=== PATIENT | female | born 1945 | race Caucasian/White ===

== ENCOUNTER 2024-10-23 13:38 | Outpatient (CLI) | payer MEDICARE, SELFPAY ==
--- OUTSIDE RECORDS SUMMARY | 2023-04-15 20:00 | XMS_ITS | Continuity of Care Document ---
Author Organization [facility] Address [address] [place] [address] Phone Care Team Providers Care Backend Tester Name Role Phone Marcel Morrell MD, Serge Unavailable Unavaila ble Procedures Procedure Date SUBSEQUENT HOSPITAL CARE SUBSEQUENT HOSPITAL CARE Advance Directives Directive Yes / No Effective Date File Name No Information Encounters Encounter Description Practice Location Reason(s) For Visit Diagnoses Date Provider Providers Copied on Encounter SUBSEQUENT HOSPITAL CARE [facility], [address] [place], [place], [id number], [place] tel:[phone] [facility] No Information Marcel Valentine. [address] [place], [place], [id number], [place]. tel:[phone] Referring Provider: Serge Morrell, [address] [place] [address], [address]. tel:[phone] Family History Family Member Type Diagnosis Age At Onset No Information Payers Payer name Insurance type Covered republican ID Authoriza tion(s) [employer] [facility] [id number] Social History Type Description Quantity Date Captured Comments Sex Female Smoking Status No Information Chief Complaint And Reason For Visit No Information Reason For Referral Reason For Referral No Information History Of Present Illness Encounter Date Complaint History Of Prese nt Illness No Information Functional Status Date Functional Assessmen t No Information Instructions Date Instruction Additional Infor mation No Information Assessments Type Assessment Date No Information Patient Care Teams Name Effective Dates (start - stop) Status Members No Information
--- OUTSIDE RECORDS SUMMARY | 2024-10-12 13:40 | XMS_ITS | Encounter Summary ---
Author Organization Healthcare Address [address] [place] [address] Care Team Providers Care Whitesmith Name Role Phone Viola Sprague APRN Primary Care Provider +1- [phone] Reason for Visit * Reason Comments Hypertension High BP, has been ru nning between 150's systolic and 70 diastolic Encounter Details Date Type Department Care Team (Late st Contact Info) Description 10/12/2024 1:40 PM EDT Office Visit [facility] [address], [address] [place] [address] Eduarda Egan APRN [address] [place] [address] Essential (primary) hypertension (Primary Dx) Social History Tobacco Use Types Packs/Day Years Used Date Smoking Tobacco: Former Cigarettes 1 40 0 05/03/1964 - 05/03/2004 Passive Smoke Exposure: Past Smokeless Tobacco: Never Alcohol Use Standard Drinks/Week Comments No 0 (1 standard drink = 0.6 oz pure alcohol) Alcoholic Drinks/day: Never Drank Alcohol PHQ-2 Answer Date Recorded Patient Health Questionnaire-2 Score 0 01/18/2024 Humiliation, Afraid, Rape, and Kick questionnair e Answer Date Recorded Within the last year, have y ou been afraid of your partner or ex-partner? No 10/12/2024 Within the last year, have y ou been humiliated or emotionally abused in other ways by your partner or ex-partner? No Within the last year, have y ou been kicked, hit, slapped, or otherwise physically hurt by your partner or ex-partner? No 10/12/2024 Within the last year, have y ou been raped or forced to have any kind of sexual activity by your partner or ex-partner? No 10/12/2024 Hunger Vital Sign Answer Date Recorded Within the past 12 months, y ou worried that your food would run out before you got the money to buy more. Never true 10/13/19 25 Within the past 12 months, t he food you bought just didn't last and you didn't have money to get more. Never true 10/12/2024 PRAPARE - Transportation Answer Date Re corded In the past 12 months, has l ack of transportation kept you from medical appointments or from getting medications? No 10/01 In the past 12 months, has l ack of transportation kept you from meetings, work, or from getting things needed for daily living? No 10/12/2024 Housing Stability Vital Sign Answer Sony e Recorded In the last 12 months, was t here a time when you were not able to pay the mortgage or rent on time? No 10/12/2024 In the past 12 months, how m any times have you moved where you were living? 0 10/12/2024 At any time in the past 12 m [facility], were you homeless or living in a mcc (including now)? No 10/12/2024 Safety and Environment Answer Date Dillan rded Do you worry that your child may have been physically abused? No 10/12/2024 Do you worry that your child may have been sexua lly abused? No 10/12/2024 Are there any guns kept in o r around your home or where your child spends time? No 10/12/2024 Guns Unloaded or Locked Away Not on file 04/2025 Utilities Answer Date Recorded In the past 12 months has th e electric, gas, oil, or water company threatened to shut off services in your home? No 10/12/2024 PHQ-2A Answer Date Recorded Patient Health Questionnaire-2 Score 0 12/29/2022 Comments No Sex and Gender Information Value Date Recorded Sex Assigned at Not on file Legal Sex Female 6:01 PM EDT Gender Identity Not on file Sexual Orientation Not on file documented as of this encounter Last Filed Vital Signs Vital Sign Reading Time Taken Comments Blood Pressure 147/73 10/12/2024 2:02 PM EDT Pulse 71 10/12/2024 2:02 PM EDT Temperature 36.3 C (97.4 F) 10/12/2024 1:41 PM EDT Respiratory Rate 15 10/12/2024 1:41 PM EDT Oxygen Saturation - - Inhaled Oxygen Concentration - - Weight 86.7 kg (191 lb 2.2 oz) 10/12/2024 1:41 P M EDT Height 167.6 cm (5' 6 ) 10/12/2024 1:41 PM EDT Body Mass Index 30.85 10/12/2024 1:41 PM EDT documented in this encounter Miscellaneous Notes * Assessment & Plan Note - Eduarda Egan APRN - 10/12/2024 1:40 PM EDT Associated Problem(s): Essential (primary) hypertension - Reports elevated home readings, controlled at first in office but then elevated to 147/79. - Already on lisinopril 40 + carvedilol 6.25 mg BID. - Will add amlodipine 2.5 mg daily. - Will have pt send me her BP readings in 2 weeks. - RTC in January/ and sooner if needed. Appt with Dr. Rivers on 01/03/25. - Check BMP today. Orders: amLODIPine (Norvasc) 2.5 MG tablet; Take 1 tablet by mouth daily. Basic metabolic panel; Future * Progress Notes - Eduarda Egan APRN - 10/12/2024 1:40 PM EDT [facility] Subjective Hypertension Ms. May is here today for a call in visit for HTN. BP currently 134/72, but that surprises her b/c @ home it is 150-160s systolic/80-90. She denies CP/SOA/dizziness/burry vision. Her Bp has been high off and on since 2022 looking back at her logs. She recently saw Ortho about her hip and is hesitant to schedule surgery w/ BP being high. Sometimes now 169/91. In the past more 140-150 systolic and wasn't worried about it. Her PA in [place] told if not > 150/90, not concerned. August 2024 showingreadings mostly 140s/70-80. She does c/o hip pain ongoing x 6 mos. Did see Ortho and they did an X-Ray and told her that she will need a replacement. She is using tylenol and IBU for pain. Her mother also had HTN and suffered a serious stroke. Medications Ordered Prior to Encounter[1] Allergies[2] Review of Systems See HPI Objective Vitals: 10/12/24 1402 BP: (!) 147/73 Pulse: 71 Resp: Temp: Physical Exam Vitals and nursing note reviewed. Constitutional: Appearance: Normal appearance. She is not ill-appearing or toxic-appearing. HENT: Head: Normocephalic. Cardiovascular: Rate and Rhythm: Normal rate and regular rhythm. Pulses: Normal pulses. Heart sounds: Normal heart sounds. Pulmonary: Effort: Pulmonary effort is normal. Breath sounds: Normal breath sounds. Musculoskeletal: Cervical back: Neck supple. Skin: General: Skin is warm and dry. Neurological: Mental Status: She is alert and oriented to person, place, and time. Psychiatric: Attention and Perception: Attention normal. Mood and Affect: Mood normal. Speech: Speech normal. Behavior: Behavior normal. Thought Content: Thought content normal. Cognition and Memory: Cognition and memory normal. Judgment: Judgment normal. Assessment & Plan Essential (primary) hypertension - Reports elevated home readings, controlled at first in office but then elevated to 147/79. - Already on lisinopril 40 + carvedilol 6.25 mg BID. - Will add amlodipine 2.5 mg daily. - Will have pt send me her BP readings in 2 weeks. - RTC in January w/ Viola and sooner if needed. Appt with Dr. Rivers on 01/03/25. - Check BMP today. Orders: amLODIPine (Norvasc) 2.5 MG tablet; Take 1 tablet by mouth daily. Basic metabolic panel; Future Eduarda Egan APRN [1] Current Outpatient Medications on File Prior to Visit Medication Sig Dispense Refill acetaminophen (Tylenol 8 Hour) 650 MG ER tablet 1 tablet (650 mg) every 8 (eight) hours if needed. Aspirin Buf,IzOqru-UoLkdp-BlZ, 81 MG tablet TAKE 1 TABLET DAILY. atorvastatin (Lipitor) 40 MG tablet Take 1 tablet (40 mg) by mouth 1 (one) time each day. 90 tablet3 calcium carbonate 1500 (600 Ca) MG tablet Take 600 mg by mouth 1 (one) time each day. Ckhyxcj-Efoebjjij-Dkwfndw D (CALCIUM 1200+D3 PO) Take by mouth 1 (one) time each day. carvedilol (Coreg) 3.125 MG tablet Take 2 tablets (6.25 mg) by mouth 2 (two) times a day with meals. 180 tablet 3 cholecalciferol (Vitamin D-3) 25 MCG (1000 UT) tablet Take 1 tablet (1,000 Units) by mouth 1 (one) time each day. coenzyme Q-10 100 MG capsule Take 1 capsule (100 mg) by mouth 1 (one) time each day. lisinopril 40 MG tablet Take 1 tablet (40 mg) by mouth 1 (one) time each day. 90 tablet 3 TURMERIC PO Take 1 capsule by mouth 1 (one) time each day. No current facility-administered medications on file prior to visit. [2] No Known Allergies documented in this encounter Plan of Treatment Upcoming Encounters Date Type Department Care Team (Late st Contact Info) Description 01/03/2025 1:00 PM EDT Office Visit [facility] [place] [address] [place] [address] Juan Manuel Rivers MD [address] [place] [address] 01/22/2025 10:00 AM EDT Clinical Support [facility] [address] [place] [address] 02/05/2025 10:30 AM EDT Office Visit [facility] [address] [place] [address] Mariana Spraguearanza [place], ASPHALT ROLLER OPERATOR [address] [place] [address] documented as of this encounter Results * (ABNORMAL) Basic metabolic panel (10/12/2024 2:31 PM EDT) Pathologist [facility] [place] Glucose, Plasma 120(H) 74 - 99 mg/dL 10/12/2024 3:57 PM EDT [facility] BUN, Plasma 15 8 - 23 mg/dL 10/12/2024 3:57 PM EDT [facility] Creatinine, Plasma 0.92 0.60 - 1.10 mg/dL 10/12/2024 3:57 PM EDT [facility] BUN/Creatinine Ratio 16 10/12/2024 3:57 PM EDT [facility] Sodium, Plasma 140 136 - 145 mmol/L 10/12/2024 3:57 PM EDT [facility] Potassium, Plasma 4.0 3.6 - 4.9 mmol/L 10/12/2024 3:57 PM EDT [facility] Chloride, Plasma 102 97 - 107 mmol/L 10/12/2024 3:57 PM EDT [facility] CO2, Plasma 28 22 - 29 mmol/L 10/12/2024 3:57 PM EDT [facility] Anion Gap 10 6 - 16 mmol/L 10/12/2024 3:57 PM EDT [facility] Total Calcium, Plasma 9.5 8.9 - 10.2 mg/dL 10/12/2024 3:57 PM EDT [facility] eGFRcr 62.7 mL/min/1.7 3m*2 10/12/2024 3:57 PM EDT [facility] Comment:Reported eGFRcr in m L/min/1.73m2 is based the CKD-EPI 2020 equation that does not use a race coefficient. Blood Venous blood specimen / Unknown Venipuncture / Unknown 10/12/2024 2:31 PM EDT 10/12/2024 2:31 PM EDT us Eduarda Egan ASPHALT ROLLER OPERATOR LAB BLOOD ORDERABLES Final Result [facility] [address] [place] [address] documented in this encounter Visit Diagnoses Diagnosis Essential (primary) hypertension- Primary Unspecified essential hypertension documented in this encounter Additional Health Concerns Assessment Noted Time A fall risk assessment has been complete d for the patient 10/12/2024 1:44 PM EDT A Body Mass Index follow-up plan has been documented for the patient 10/12/2024 2:26 PM EDT documented as of this encounter Care Teams Whitesmith Relationship Specialty Start Date End Date Viola Sprague APRN [address] [facility] [address] [place] [address] PCP - General 09/13/20 documented as of this encounter
--- OUTSIDE RECORDS SUMMARY | 2024-10-23 13:42 | XMS_ITS | Encounter Summary ---
Author Organization Healthcare Address [address] [place] [address] Care Team Providers Care Cake Press Operator Name Role Phone Viola Sprague APRN Primary Care Provider +1- [phone] Encounter Details Date Type Department Care Team (Late st Contact Info) Description 10/13/2024 Results Follow-Up [facility] [address] [place] [address] Eduarda Egan APRN [address] [place] [address] Social History Tobacco Use Types Packs/Day Years [...] any time in the past 12 m [facility], were you homeless or living in a skilled nursing (including now)? No 10/12/2024 Safety and Environment [...] on file documented as of this encounter Plan of Treatment Upcoming Encounters Date Type Department Care Team (Late st Contact Info) Description 01/03/2025 1:00 PM EDT Office Visit [facility] [place] [address], [address] [place] [address] Juan Manuel Rivers MD [address] [place], [place] [id number] 01/22/2025 10:00 AM EDT Clinical Support [facility] [address] [place] [address] 02/05/2025 10:30 AM EDT Office Visit [facility] [address] [place] [address] Viola Sprague APRN [address] [facility] [address] [place] [address] documented as of this encounter Visit Diagnoses Not on filedocumented in this encounter Additional Health Concerns Assessment Noted Time A fall risk assessment has been complete d for the patient 10/12/2024 1:44 PM EDT A Body Mass Index follow-up plan has been documented for the patient 10/12/2024 2:26 PM EDT documented as of this encounter Care Teams Cake Press Operator Relationship Specialty Start Date End Date Viola Sprague APRN [address] [facility] [address] [place] [address] PCP - General 09/13/20 documented as of this encounter
--- OUTSIDE RECORDS SUMMARY | 2024-10-23 13:42 | XMS_ITS | Encounter Summary ---
Author Organization Healthcare Address [address] [place] [address] Care Team Providers Care Building Materials Sales Attendant Name Role Phone CelestineViola [facility] Primary Care Provider +1- [phone] Encounter Details Date Type Department Care Team (Latest Contact Info) Description 10/12/2024 Travel Social History Tobacco Use Types Packs/Day Years [...] any time in the past 12 m [facility], were you homeless or living [...] Upcoming Encounters Date Type Department Care Team ([facility] st Contact Info) Description 01/03/2025 1:00 PM EDT Office Visit [facility] [place] [address], [address] [place] [address] Juan Manuel Rivers MD [address] [place] [address] 01/22/2025 10:00 AM EDT Clinical Support [facility] [address] [place] [address] 02/05/2025 10:30 AM EDT Office Visit [facility] [address] [place] [address] Viola Sprague APRN [address] [place] [address] documented as of this encounter Visit Diagnoses Not on filedocumented in this encounter Additional Health Concerns Assessment Noted Time A fall risk assessment has been complete d for the patient 10/12/2024 1:44 PM EDT A Body Mass Index follow-up plan has been documented for the patient 10/12/2024 2:26 PM EDT documented as of this encounter Care Teams Building Materials Sales Attendant Relationship Specialty Start Date End Date Viola Sprague APRN [address] [place] [address] PCP - General 09/13/20 documented as of this encounter
--- OUTSIDE RECORDS SUMMARY | 2024-10-23 13:43 | XMS_ITS | Clinical Summary ---
Author Organization [facility] Address [address] [place] [address] Care Team Providers Care Automatic Pattern Edger Name Role Phone CelestineViola anna [facility] Primary Care Provider [phone] Allergies No known active allergies Medications coenzyme Q-10 100 MG capsule Take 1 capsule (100 mg) by mouth 1 (one) time each day. 9 Active Aspirin Buf,CaCarb-MgCarb -MgO, 81 MG tablet TAKE 1 TABLET DAILY. 8 Active acetaminophen (Tylenol 8 Hour) 650 MG ER tablet 1 tablet (650 mg) every 8 (eight) hours if needed. 2 Active Calcium-Magnesium -Vitamin D (CALCIUM 1200+D3 PO) Take by mouth 1 (one) time each day. 1 Active cholecalciferol (Vitamin D-3) 25 MCG (1000 UT) tablet Take 1 tablet (1,000 Units) by mouth 1 (one) time each day. Active calcium carbonate 1500 (600 Ca) MG tablet Take 600 mg by mouth 1 (one) time each day. Active TURMERIC PO Take 1 capsule by mouth 1 (one) time each day. Active atorvastatin (Lipitor) 40 MG tabletIndications :Mixed hyperlipidemia,Hi story of TIA (transient ischemic attack),Coronary artery disease involving [place] coronary artery of [place] heart, unspecified whether angina present,Aneurysm of ascending aorta without rupture (CMS/HCC) Take 1 tablet (40 mg) by mouth 1 (one) time each day. 90 tablet 3 4 Active lisinopril 40 MG tabletIndications :Essential (primary) hypertension Take 1 tablet (40 mg) by mouth 1 (one) time each day. 90 tablet 3 4 Active carvedilol (Coreg) 3.125 MG tabletIndications :Irregular heartbeat Take 2 tablets (6.25 mg) by mouth 2 (two) times a day with meals. 180 tablet 3 4 Active amLODIPine (Norvasc) 2.5 MG tabletIndications :Essential (primary) hypertension Take 1 tablet by mouth daily. 30 tablet 5 5 04/10/20 25 Active Active Problems Problem Noted Date Diagnosed Date Pulmonary nodule 09/16/2022 Aneurysm of ascending aorta without rupture 08/31 Essential (primary) hypertension 09/16/2022 Assessment & Plan (10/12/2024 2:26 PM EDT): - Reports elevated home readings, controlled at [...] by mouth daily. Basic metabolic panel; Future Chronic venous insufficiency of lower extremity 12/05/2021 Lymphedema 12/05/2021 Varicose veins of left lower extremity with pain 10/06/2021 History of TIA (transient ischemic attack) 10/06 Coronary artery disease invo lving [place] coronary artery of [place] heart 10/06/2021 Chronic pain of right knee 10/06/2021 Medicare annual wellness visit, subsequent 12/17 Irregular heartbeat 11/21/2019 Osteopenia 11/10/2017 Heel pain 10/22/2016 Hyperglycemia 09/17/2014 Hyperlipidemia 09/17/2014 Vitamin D deficiency 02/17/2013 Encounters Date Type Department Care Team Description 10/13/2024 Results Follow-Up [facility] [address] [place] [id number] Eduadra Egan, TRIM DIE MAKER 10/12/2024 1:40 PM EDT Office Visit [facility] [address] [place] [address] Eduarda Egan, CYRUS Essential (primary) hypertension (Primary Dx) 10/12/2024 Travel from Last 3 Months Immunizations Immunization Administration Dates Next Due Hep A / Hep B 09/08/2018,03/19/2018,02/16/2018 Hep A, Adult 08/17/2018,02/16/2018 Hep B, adult 02/16/2018 Influenza, High-dose, Split Virus, Trivalent, Injectable, preservative free 01/18/2024 Influenza, high-dose, quadrivalent 03/04/2022, Influenza, seasonal, injectable 02/17/2013 Moderna COVID-19 Vaccine (Re d Cap) 12+ years 10/22/2021,04/11/2021,07/05/2020 Pneumococcal 20-cesar Conj Vaccine 01/18/2024 Pneumococcal Conjugate PCV 13 04/11/2021, 015 Pneumococcal Polysaccharide PPV23 02/17/2013 Rsvpref, Recombinant, Protei n Subunit, Adjuvent 03/01/2024 Tdap 02/24/2013 Varicella Zoster Immune Globulin 05/03/2009 Zoster, Recombinant 09/08/2023,02/17/2023 Zoster, live 09/20/2009 Family History Medical History Relation Name Comments Cancer Father emmit Hypertension Father emmit Prostate cancer Father emmit Brain Tumor Mother genemi Cancer Mother [place] Hypertension Mother [place] Stroke Mother [place] Transient ischemic attack Mother [place] Colon cancer Niece Relation Name Status Comments Father emmit Mother genejake Niece Social History Tobacco Use Types Packs/Day Years Used Date Smoking Tobacco: Former Cigarettes 1 40 0 05/03/1964 - 05/03/2004 Passive Smoke Exposure: Past Smokeless Tobacco: Never Tobacco Cessation:Counseling Given: Not Answered Alcohol Use Standard Drinks/Week Comments No 0 [...] any time in the past [address] [facility], were you homeless or living in a custodial (including now)? No 10/12/2024 Safety and Environment [...] on file Sexual Orientation Not on file Last Filed Vital Signs Vital Sign Reading Time Taken Comments Blood Pressure 147/73 10/12/2024 2:02 PM EDT Pulse 71 10/12/2024 2:02 PM EDT Temperature 36.3 C (97.4 F) 10/12/2024 1:41 PM EDT Respiratory Rate 15 10/12/2024 1:41 PM EDT Oxygen Saturation 95% 10/06/2023 9:02 AM EDT Inhaled Oxygen Concentration - - Weight 86.7 kg (191 lb 2.2 oz) 10/12/2024 1:41 P M EDT Height 167.6 cm (5' 6 ) 10/12/2024 1:41 PM EDT Body Mass Index 30.85 10/12/2024 1:41 PM EDT Plan of Treatment Upcoming Encounters Date Type Department Care Team (Late st Contact Info) Description 01/03/2025 1:00 PM EDT Office Visit [facility] [place] [address], [address] [place] [id number] Juan Manuel Rievrs MD [address] [place] [address] 01/22/2025 10:00 AM EDT Clinical Support [facility] [address] [place] [address] 02/05/2025 10:30 AM EDT Office Visit [facility] [address] [place] [address] Viola Sprague APRN [address] [place] [address] Health Maintenance Due Date Last Done Comments [facility]-DTaP,Tdap,and Td Vaccines (2 - Td or Tdap) 02/24/2023 02/24/2013 [id number] Vaccine ( season) 2024 10/22/2021, 04/11/2021, 07/05/2020 [facility]-Depression Screening 01/17/2025 01/18/2024 [facility]-Diabetes: Hemoglobin A1C 01/17/2025 01/18/2024, 12/29/2022, 12/23/2021, Additional history exists [facility]-Medicare Annual Wellness (AWV) 01/17/2025 01/18/2024, 12/29/2022, 12/23/2021, Additional history exists [facility]-Bone Density Scan 02/09/2025 02/09/2023, 022 [facility]- SDOH Screenings 04/13/2025 [facility]-Adult SDOH Screenings 04/13/2025 10/12/2024 [facility]-/Child/Adol SDOH Screenings 04/13/2025 10/12/2024 [facility]-Hepatitis A Vaccines Aged Out 019, 08/17/2018, 03/19/2018, Additional history exists No longer eligible based on patient's age to complete this topic [facility]-Zoster Vaccines Completed 09/08/2023, 02/17/2023, 09/20/2009 [facility]-Influenza Vaccine Completed 01/18/2024 , 03/04/2022, 02/16/2018, Additional history exists [facility]-Pneumococcal Vaccine: 50+ Years Completed 01/18/2024, 04/11/2021, 09/04/2014, Additional history exists [facility]-RSV Vaccine: 60+ Years or Completed 03/01/2024 [facility]-Obesity Intervention Completed 025, 01/18/2024, 01/18/2024, Additional history exists HPV Vaccines Aged Out No longer eligi ble based on patient's age to complete this topic [facility]-HIB Vaccines Aged Out No longer e ligible based on patient's age to complete this topic [facility]-IPV Vaccines Aged Out No longer e ligible based on patient's age to complete this topic [facility]-Rotavirus Vaccines Aged Out No lo nger eligible based on patient's age to complete this topic Procedures Procedure Name Priority Date/Time Associated Diagnosis Comments BASIC METABOLIC PANEL, PLASMA Routine 10/12/2024 2:31 PM EDT Essential (primary) hypertension HEMOGLOBIN A1C Routine 01/18/2024 10:22 AM EDT Mixed hyperlipidemia History of TIA (transient ischemic attack) Coronary artery disease involving [place] coronary artery of [place] heart, unspecified whether angina present Aneurysm of ascending aorta without rupture ([facility]) Medicare annual wellness visit, subsequent DEXA BONE DENSITY Routine 02/09/2023 9:3 5 AM EDT Osteopenia, unspecified location from Last 3 Months or Most Recently Relevant to Health Maintenance Results * (ABNORMAL) Basic metabolic panel (10/12/2024 2:31 PM EDT) Glucose, Plasma 120(H) 74 - 99 mg/dL 10/12/2024 3:57 PM EDT [facility] BUN, Plasma 15 8 - 23 mg/dL 10/12/2024 3:57 PM EDT [facility] Creatinine, Plasma 0.92 0.60 - 1.10 mg/dL 10/12/2024 3:57 PM EDT [facility] BUN/Creatinine Ratio 16 10/12/2024 3:57 PM EDT [facility] Sodium, Plasma 140 136 - 145 mmol/L 10/12/2024 3:57 PM EDT [facility] Potassium, Plasma 4.0 3.6 - 4.9 mmol/L 10/12/2024 3:57 PM EDT [facility] Chloride, Plasma 102 97 - 107 mmol/L 10/12/2024 3:57 PM EDT [facility] CO2, Plasma 28 22 - 29 mmol/L 10/12/2024 3:57 PM EDT [facility] Anion Gap 10 6 - 16 mmol/L 10/12/2024 3:57 PM EDT [facility] Total Calcium, Plasma 9.5 8.9 - 10.2 mg/dL 10/12/2024 3:57 PM EDT [facility] eGFRcr 62.7 mL/min/1.7 3m*2 10/12/2024 3:57 PM EDT [facility] Comment:Reported eGFRcr in m L/min/1.73m2 is based the CKD-EPI 2020 equation that does not use a race coefficient. Blood Venous blood specimen / Unknown Venipuncture / Unknown 10/12/2024 2:31 PM EDT 10/12/2024 2:31 PM EDT us Eduarda Egan TRIM DIE MAKER LAB BLOOD ORDERABLES Final Result Performing Organization Address [facility] Co de Phone Number [facility] [address] [place] [address] * (ABNORMAL) Hemoglobin A1c (01/18/2024 10:22 AM EDT) Hemoglobin A1c 5.9(H) <5.7 % 01/18/2024 12:13 PM EDT [facility] Blood Venous blood specimen / Unknown Venipuncture / Unknown 01/18/2024 10:22 AM EDT 01/18/2024 10:23 AM EDT Narrative [facility] - 01/18/2024 12:13 PM EDT HA1C Interpretive Data: Diagnosis of Diabetes: Diabetic > or = 6.5% Pre-diabetic 5.7 to 6.4% Non-diabetic < or = 5.6% Glycemic Targets for Type I and Type II Diabetics: Non- Adults <7.0% Adults <6.0% Children and Adolescents <7.5% Source: [place] [employer]. Standards of medical care in diabetes,2017. Diabetes Care.2017:40 (suppl 1):S1-S135. HbA1c assay performed by an ion-exchange chromatography method that is certified traceable to the DCCT. us Viola Sprague TRIM DIE MAKER LAB BLOOD ORDERABLES Final Result Performing Organization Address [facility] Co de Phone Number [facility] [address] [place] [address] * Dexa Bone Density (02/09/2023 9:35 AM EDT) Anatomical Region Laterality Modality L-spine Radiographic Kusum ging Narrative 02/10/2023 11:34 AM EDT [facility] Nephrology, Bone [facility] Min[facility] Met[facility] [address], [place] [address] DXA Bone Densitometry Report: [DAY/DATE] BMD test performed using the [employer] iDXA DXA System (analysis version: 14.10) manufactured by [employer]. CLINICAL INFORMATION: PATIENT NAME: Kathy May PATIENT AGE: 77 y.o. LEGAL SEX: female RADIOGRAPHIC VIEWS: Sites scanned: AP Spine, HIP Right , and HIP Left COMPARISON STUDY: 2021. FINDINGS: Based on WHO criteria (post-menopausal female) the diagnosis is Osteopenia based on lowest T score. The BMD is improved compared to previous results. TREATMENT RECOMMENDATIONS: Treatment decisions should be based on clinical indications. Suggest general measures to optimize calcium and vitamin D status, fall prevention measures and reduce fracture risk. FRAX threshold is met for consideration of therapy (Hip 3%) Consider repeat BMD in 2-3 years us Viola Sprague APRN IMG DXA PROCEDURES Final R esult from Last 3 Months or Most Recently Relevant to Health Maintenance Insurance [facility] MEDICARE Care Teams Automatic Pattern Edger Relationship Specialty Start Date End Date Viola Sprague APRN [address] [place] [address] PCP - General 09/13/20
--- OUTSIDE RECORDS SUMMARY | 2024-10-23 13:43 | XMS_ITS | Data Portability ---
Author Organization [facility] Address [address] [place] [address] Assessment No assessment recorded. Plan of Treatment Reminders Order Date Submit Date Provider Last Modified By Organization Details Last Modified Time Details Appointments None recorded. Lab None recorded. Referral dermatologi st referral - appointment scheduled 2022 023 [email or web address] Amaris Gonzalez [employer], [address] [place], [address], 15:15:35 Procedures None recorded. Surgeries None recorded. Imaging None recorded. Medication Orders None recorded. Patient TargetsNo targets recorded. Patient Instructions Encounter Date Encounter Id Patient Instructions Last Modified By Organization Details Last Modified Time 10/09/2022 [id number] body mass index: care instructions [place] Not available 10/09/2022 10:53:50 learning about healthy weight [place] Not available 10/09/2022 10:53:50 10/19/2022 [id number] future procedure : 3 mm punch on tip of nose, 5 nylon [email or web address] Not available 10/19/2022 13:59:26 Reason for Referral Print Producer Referral for L esion of skin of nose appointment scheduled Referring Physician: Braden Tejeda, Family Medicine, Encounter Date: 10/09/2022 Problems Name Problem SNOMED Code Status Onset Date Resolution Date Notes Provider Name and Address Organization Details Recorded Time Hypertensive disorder 59780736 Active Yolanda Cisneros null, [facility] 3 09:57:04 Hyperlipidemia 07392451 Active Any Cisneros null, [facility] 09:57:29 Problem Notes None recorded. Procedures Surgical History Date Name Laterality Status Provider Name and Address Organization Details Recorded Time Dilation and curettage completed Yolanda LIANG - [facility] 10/09/2022 10:03:00 Imaging Results None recorded. Procedure Notes None recorded. Medical Equipment None Reported. Allergies No known drug allergies Medications Name Sig Start Date Stop Date Status Note LastModified by Organization Details LastModified Time atorvasta tin 40 mg tablet TAKE 1 TABLET BY MOUTH ONCE DAILY active Not Available Not Available No t Available carvedilo l 6.25 mg tablet Take 1 tablet twice a day by oral route. active Not Available Not Available No t Available carvedilo l 3.125 mg tablet TAKE 1 TABLET BY MOUTH TWICE DAILY WITH MEALS active Not Available Not Available No t Available lisinopri l 10 mg tablet TAKE 1 TABLET BY MOUTH ONCE DAILY FOR BLOOD PRESSURE active Not Available Not Available No t Available pravastat in 20 mg tablet TAKE 1 TABLET BY MOUTH ONCE DAILY AT NIGHT 10/19 completed Not Available Not Available Not Available Nasonex 50 mcg/actua tion [place] inhale 1- 2 sprays in each nostril by intranas al route once daily 08/28 completed Nasonex Nasal [place], Non-Aero josé miguel 50 mcg/Actu ation;Re corded Status: Recorded on: 08/29/19 11:15AM; Disconti nued Status: Disconti nued on: 08/29/19 09 11:26AM; User: laurie Ramost ion: Allergic Rhinitis - (4779 );Prin kevin: 08/29/19 Not Available Not Available Not Available lisinopri l 40 mg tablet Take 1 tablet every day by oral route. active Not Available Not Available No t Available fluticaso ne propionat e 50 mcg/actua tion nasal spray,[place]ole pension inhale 1- 2 sprays in each nostril by intranas al route once daily 10/09 completed Fluticas one Nasal [place], Suspensi on 50 mcg/Actu ation;Re corded Status: Recorded on: 08/29/19 11:26AM; User: laurie ;Indicat ion: Allergic Rhinitis - ([phone]);Prin kevin: 08/29/19 09 Not Available Not Available Not Available naproxen 500 mg tablet take 1 tablet by oral route 2 times a day (after meals) for 30 days 07/25 completed naproxen Oral Tablet 500 mg;Recor ded Status: Recorded on: 05/26/19 11 10:47AM; User: Huber t. Completi on: 07/26/19 11;Indic ation: Pain - ([phone]);Prin kevin: 05/26/19 11 Not Available Not Available Not Available Bactrim DS 800 mg-160 mg tablet take 1 tablet by oral route 2 times per day for 7 days 05/26 completed Bactrim DS Oral Tablet 160-800 mg;Recor ded Status: Recorded on: 04/23/20 09 8:53AM;D iscontin ued Status: Disconti nued on: 05/26/19 11 10:14AM; User: january Rashid Completi on: 04/30/20 09 Not Available Not Available Not Available Suprep Bowel Prep Kit 17.5 gram-3.13 gram-1.6 gram oral solution 10/19 completed Not Available Not Available Not Available Vitals Date Recorded Body height Body mass index (BMI) Body weight Body temperature Heart rate Oxygen saturation Oxygen saturation in Arterial blood by Pulse oximetry Respiratory rate Systolic blood pressure Diastolic blood pressure Provider Name and Address Organization Details Last Updated DateTime 3 170.18 cm 29.8 kg/m2 87124.6 5 g 97.3 [degF] 96 /min 97 % 97 % 18 /min 152 mm[Hg] 80 mm[Hg] Yolanda Cisneros [place] - [facility] 3 09:53:36 Date Recorded Body height Body mass index (BMI) Body weight Heart rate Oxygen saturation Oxygen saturation in Arterial blood by Pulse oximetry Respiratory rate Systolic blood pressure Diastolic blood pressure Provider Name and Address Organization Details Last Updated DateTime 3 170.18 cm 30.1 kg/m2 14674.7 4 g 73 /min 97 % 97 % 18 /min 118 mm[Hg] 74 mm[Hg] America Taylor [place] - [facility] 3 13:22:24 Social History Question Answer Notes LastModified by Organizat ion Details LastModified Time Tobacco Smoking Status Former Smoker Yolanda Cisneros null, [place] - [facility] 10/09/2022 10:00:27 Do You Have An Advance Directive? Yes Information not available 10/09/2022 Are You Blind Or Do You Have Difficulty Seeing? No Information not available 10/09/2022 What Is Your Level Of Caffeine Consumption? Moderate Information not available 10/09/2022 In The 14 Days Before Symptom Onset, Have You Had Close Contact With A Laboratory-confir med COVID-19 While That Case Was Ill? No Information not available 10/09/2022 In The 14 Days Before Symptom Onset, Have You Had Close Contact With A Person Who Is Under Investigation For COVID-19 While That Person Was Ill? No Information not available 10/09/2022 Have You Been To An Area Known To Be High Risk For COVID-19? No Information not available 10/09/2022 Are You Deaf Or Do You Have Serious Difficulty Hearing? No Information not available 10/09/2022 What Type Of Diet Are You Following? REGULAR Information not available 10/09/2022 Have You Processed Blood Or Body Fluids From An Ebola Virus Disease Patient Without Appropriate PPE? No Information not available 10/09/2022 Do You Reside In Or Have You Traveled To An Area Where Ebola Virus Transmission Is Active? No Information not available 10/09/2022 What Is The Highest Grade Or Level Of School You Have Completed Or The Highest Degree You Have Received? [id number] Information not available 10/09/2022 What Is The Fluoride Status Of Your Home? Fluoridated Information not available 10/09/2022 When Did You Quit Smoking? 16+yearssindivya mendoza Information not available 10/09/2022 Have You Recently Or Are You Planning To Travel To An Area With Zika Virus? No Information not available 10/09/2022 Do You Have A Medical Power Of Cloth Feeder? Yes Information not available 10/09/2022 What Was The Date Of Your Most Recent Tobacco Screening? 10/09/2022 Information not available 10/09/2022 What Is Your Relationship Status? Information not available 10/09/2022 Do You Have Smoke And Carbon Monoxide Detectors In Your Home? Yes Information not available 10/09/2022 Are You Passively Exposed To Smoke? No Information no t available 10/09/2022 Has Tobacco Cessation Counseling Been Provided? No Information not available 10/09/2022 How Many Years Have You Smoked Tobacco? -1 Information not available 10/09/2022 Do You Have Difficulty Walking Or Climbing Stairs? No Information not available 10/09/2022 Sex: Unknown Functional Status Question Answer Note LastModified by Organizat ion Details LastModified Time Do you use any illicit or recreational drugs? No Information not available 10/09/2022 What is your level of alcohol consumption? None Information not available 10/09/2022 Are you currently employed? No Information not available 10/09/2022 Do you have transportation difficulties? No Information not available 10/09/2022 Are you able to walk? YESWOREST Information not available 10/09/2022 Do you have difficulty doing errands alone? No Information not available 10/09/2022 Are you able to care for yourself? Yes Information not available 10/09/2022 Do you have difficulty dressing or bathing? No Information not available 10/09/2022 What is your exercise level? Moderate Information not available 10/09/2022 Mental Status Question Answer Note LastModified by Organizat ion Details LastModified Time Do you feel stressed (tense, restless, nervous, or anxious, or unable to sleep at night)? [id number] Information not available 10/09/2022 Do you have difficulty concentrating, remembering or making decisions? No Information no t available 10/09/2022 Family History Nothing Reported. Medical History Condition Response Hyperlipidemia Y Hypertension Y Gynecological History Statement/Question Response Menses Monthly N Date of Last Pap Smear Date of Last Colonoscopy Date of Last Mammogram Most Recent Bone Density Obstetrics History GPAL:G 1 P 1 0 0 1 Type Value Multiple Births 0 Full Term 1 Induced 0 Spontaneous 0 Premature 0 Living 1 Ectopics 0 Total 1 Immunizations Vaccine Type Date Status Note Provider Nam e and Address Organization Details Recorded Time Hep B, adult 8 completed [facility] null, [facility] 10/09/2022 09:54:02 Hep A, adult 8 completed Y[facility]anda Amelia null, [facility] 10/09/2022 09:54:02 Influenza, split virus, quadrivalent, preservative 8 completed [facility]neros null, [facility] 10/09/2022 09:54:01 Influenza, high-dose, quadrivalent, PF 2 completed Yolanda Cisneros null, [facility] 09:54:02 COVID-19, mRNA, LNP-S, PF, 100 mcg/0.5mL dose or 50 mcg/0.25mL dose 1 completed [facility] C[facility]neros null, [facility] 10/09/2022 09:54:02 COVID-19, mRNA, LNP-S, PF, 100 mcg/0.5mL dose or 50 mcg/0.25mL dose 2 completed Yolanda Cisneros null, [facility] 10/09/2022 09:54:02 COVID-19, mRNA, LNP-S, PF, 100 mcg/0.5mL dose or 50 mcg/0.25mL dose 1 completed Yolanda Cisneros null, [facility] 10/09/2022 09:54:02 pneumococcal polysaccharide PPV23 3 completed Yolanda Cisneros null, [facility] 10/09/2022 09:54:02 influenza, unspecified formulation 3 completed Yolanda Cisneros null, [facility] 10/09/2022 09:54:02 Tdap 3 completed Yolanda Cisneros null, [facility] 09:54:02 Pneumococcal conjugate PCV 13 1 completed [facility]neros null, [facility] 10/09/2022 09:54:02 zoster live 0 completed Y[facility]anda Cisneros null, [facility] 10/09/2022 09:54:02 Influenza, high-dose, trivalent, PF 8 completed Yolanda Cisneros null, [place] - [facility] 10/09/2022 09:54:02 Hep A, adult 9 completed Yolanda Cisneros null, [place] - [facility] 10/09/2022 09:54:02 Hep A-Hep B 9 completed Yolanda Cisneros null, [place] - [facility] 10/09/2022 09:54:02 Hep A-Hep B 8 completed Yolanda Cisneros null, [place] - [facility] 10/09/2022 09:54:02 Hep A-Hep B 8 completed Yolanda Cisneros null, [place] - [facility] 10/09/2022 09:54:02 Past Encounters Encounter ID Performer Location Encounter Start Date Encounter Closed Date Diagnosis/Indication Diagnosis SNOMED-CT Code Diagnosis ICD10 Code Diagnosis Note [id number] [facility] [address] [place] [address] 12/29/2005 00:00:00 [id number] [facility] [address] [place] [address] 12/27/2007 00:00:00 [id number] [facility] [address] [place] [address] 04/17/2009 00:00:00 [id number] [facility] [address] [place] [address] 01/12/2008 00:00:00 [id number] [facility] [address] [place] [address] 05/26/2010 00:00:00 [id number] [facility] [address] [place] [address] 08/28/2008 00:00:00 [id number] [facility] [address] [place] [address] 04/17/2009 00:00:00 [id number] Braden Tejeda APRN [address] [address] 10/09/2022 09:31:59 10/09/2022 10:44:10 Body mass index 25-29 - overweight 342742842 Z68.29 Overweight 893978118 E66 .3 Lesion of skin of nose 2405431086 0260039 J34.89 [id number] Amaris Gonzalez APRN [facility] [address] [place] [address] 10/19/2022 12:41:31 10/19/2022 14:05:05 Neoplasm of skin 475160782 D49.2 return for 3 mm punch on tip of nose to rule out BCC Health Concerns Section Related Observation LastModified by Organization Detai ls LastModified Time None Recorded Concern Status LastModified by Organization Details LastModified Time None Recorded Advance Directives Directive Y: Payers Insurance Date Sequence Insurance Name Policy Number Policy Zhu Covered Member ID Zhu Member ID Guarantor Name 10/16/2022 1 [employer] (PPO) Kathy May [id number] Kathy May 11/09/2022 [employer] (MEDICARE REPLACEMENT/A DVANTAGE - PPO) Kathy May [id number] Kathy May Notes Date Note Type Note Provider Name and Address Organization Details Recorded Time 10/09/2022 text/html 77 yr old female presents for a skin lesion to her nose. She had a place on her nose removed in July of 2022 in [place] and now another one is back and becoming bigger Jonolacy CYRUS Tejeda [address], [place], [address], [facility] - [facility] 10/09/2022 10:54:26 10/19/2022 text/html Kathy is a 77 year old who presents to dermatology today with concerns of askin lesion on nose . Present since the Fall and has not cleared up. It has previously been frozen by a Derm in [place]. Amaris Gonzalez APRN [address], [place], [address], [place] - [facility] 10/19/2022 14:02:35 OBGyn Episode No OBEpisode recorded.
--- NOTE | 2024-10-23 13:44 | XR_ITS ---
FINAL REPORT CLINICAL HISTORY: right hip pain COMPARISON: None FINDINGS: RIGHT HIP Three views of the right hip, including an AP view of the pelvis, demonstrate no acute fracture or dislocation. There are moderate degenerative changes of the right hip. Mild osteopenia is noted. The visualized bony structures are well aligned. No soft tissue abnormality is seen. IMPRESSION: Mild degenerative changes. Reviewed, Interpreted and Dictated by Charley Lopez MD Transcribed by Sandra Waller Authenticated and [facility]
== END 2024-10-23 23:59 | disposition home or self-care (01) ==
LOC: RAD 13:40
PROVIDERS: Visit Provider Physician Assistant Surgical
DX: M16.11 Unilateral primary osteoarthritis, right hip (principal)
CPT/HCPCS: 73502

== ENCOUNTER 2024-11-17 11:49 | Outpatient (CLI) | payer MEDICARE, SELFPAY ==
--- OUTSIDE RECORDS SUMMARY | 2024-10-12 13:40 | XMS_ITS | Encounter Summary ---
Author Organization Healthcare Address [address] [place] [address] Care Team Providers Care Drawbridge Operator Name Role Phone Viola Sprague APRN Primary Care Provider +1- [phone] Reason for Visit * Reason Comments Hypertension High BP, has been ru nning between 150's systolic and 70 diastolic Encounter Details Date Type Department Care Team (Late st Contact Info) Description 10/12/2024 1:40 PM EDT [facility] [address] [place] [address] Eduarda Egan APRN [address] [place] [address] Essential (primary) hypertension (Primary Dx) [...] any time in the past 12 m [facility], were you homeless or living in a nursing home (including now)? No 10/12/2024 Safety and Environment [...] wasn't worried about it. Her PA in [place] told if not > 150/90, not concerned. [...] every 8 (eight) hours if needed. Aspirin Buf,AzTiyx-WmUwwu-HcA, 81 MG tablet TAKE 1 TABLET DAILY. atorvastatin (Lipitor) 40 MG tablet Take 1 tablet (40 mg) by mouth 1 (one) time each day. 90 tablet3 calcium carbonate 1500 (600 Ca) MG tablet Take 600 mg by mouth 1 (one) time each day. Urlgzzx-Xhwvwttcq-Ocrlbeh D (CALCIUM 1200+D3 PO) Take by mouth [...] Description 01/03/2025 1:00 PM EDT Office Visit [facility] [place] [address] [facility] [address], [address] [place] [address] Juan Manuel Rivers MD [address] [place] [address] 01/22/2025 10:00 AM EDT Clinical Support [facility] [address] [place] [address] 02/05/2025 10:30 AM EDT Office Visit [facility] [address] [place] [address] Mariana Spraguearanza [place], APPLIED STATISTICIAN [address] [place] [address] documented as of this encounter Results * (ABNORMAL) Basic metabolic panel (10/12/2024 2:31 PM EDT) Pathologist [facility] Glucose, Plasma 120(H) 74 - 99 mg/dL 10/12/2024 3:57 PM EDT [facility] BUN, Plasma 15 8 - 23 mg/dL 10/12/2024 3:57 PM EDT [facility] Creatinine, Plasma 0.92 0.60 - 1.10 mg/dL 10/12/2024 3:57 PM EDT [facility] BUN/Creatinine Ratio 16 10/12/2024 3:57 PM EDT [facility] Sodium, Plasma 140 136 - 145 mmol/L 10/12/2024 3:57 PM EDT [facility] Potassium, Plasma 4.0 3.6 - 4.9 mmol/L 10/12/2024 3:57 PM EDT [facility] Chloride, Plasma 102 97 - 107 mmol/L 10/12/2024 3:57 PM EDT [facility] CO2, Plasma 28 22 - 29 mmol/L 10/12/2024 3:57 PM EDT [facility] Anion Gap 10 6 - 16 mmol/L 10/12/2024 3:57 PM EDT [facility] Total Calcium, Plasma 9.5 8.9 - 10.2 mg/dL 10/12/2024 3:57 PM EDT [facility] eGFRcr 62.7 mL/min/1.7 3m*2 10/12/2024 3:57 PM EDT [facility] Comment:Reported eGFRcr in m L/min/1.73m2 is based the CKD-EPI 2020 equation that does not use a race coefficient. Blood Venous blood specimen / Unknown Venipuncture / Unknown 10/12/2024 2:31 PM EDT 10/12/2024 2:31 PM EDT us Eduarda Egan APPLIED STATISTICIAN LAB BLOOD ORDERABLES Final Result [facility] [address] [place] [address] documented in this encounter Visit Diagnoses Diagnosis Essential (primary) hypertension- Primary Unspecified essential hypertension documented in this encounter Additional Health Concerns Assessment Noted Time A fall risk assessment has been complete d for the patient 10/12/2024 1:44 PM EDT A Body Mass Index follow-up plan has been documented for the patient 10/12/2024 2:26 PM EDT documented as of this encounter Care Teams Drawbridge Operator Relationship Specialty Start Date End Date Viola Sprague APRN [address] [facility] [address] [place] [address] PCP - General 09/13/20 documented as of this encounter
--- OUTSIDE RECORDS SUMMARY | 2024-11-17 11:52 | XMS_ITS | Clinical Summary ---
Author Organization [facility] Address [address] [place] [address] Care Team Providers Care Medical Staff Physician Name Role Phone CelestineViola anna [facility] Primary Care Provider [phone] Allergies No known active allergies Medications coenzyme [...] TIA (transient ischemic attack),Coronary artery disease involving red cliff coronary artery of red cliff heart, unspecified whether angina present,Aneurysm of ascending [...] attack) 10/06 Coronary artery disease invo lving red cliff coronary artery of red cliff heart 10/06/2021 Chronic pain of right knee 10/06/2021 Medicare annual wellness visit, subsequent 12/17 Irregular heartbeat 11/21/2019 Osteopenia 11/10/2017 Heel pain 10/22/2016 Hyperglycemia 09/17/2014 Hyperlipidemia 09/17/2014 Vitamin D deficiency 02/17/2013 Encounters Date Type Department Care Team Description 11/17/2024 Refill [facility] [address] [place] [id number] Celestine, Viola E, TANKAGE GRINDER OPERATOR Irregular heartbeat 10/13/2024 Results Follow-Up [facility] [address] [place] [address] Eduarda Egan APRN 10/12/2024 1:40 PM EDT Office Visit [facility] [address] [place] [address] Eduarda Egan, TANKAGE GRINDER OPERATOR Essential (primary) hypertension (Primary Dx) 10/12/2024 Travel [...] Prostate cancer Father emmit Brain Tumor Mother geneva Cancer Mother geneva Hypertension Mother geneva Stroke Mother geneva Transient ischemic attack Mother geneva Colon cancer Niece Relation Name Status Comments [...] any time in the past 12 m [facility], were you homeless or living in a care home (including now)? No 10/12/2024 Safety and [...] Recorded In the past 12 months has e electric, gas, oil, or water company [...] Description 01/03/2025 1:00 PM EDT Office Visit [facility] [place] [address], [address] [place] [address] Juan Manuel Rivers MD [address] [place], [place] [id number] 01/22/2025 10:00 AM EDT Clinical Support [facility] [address] [place] [address] 02/05/2025 10:30 AM EDT Office Visit [facility] [address] [place] [address] Viola Sprague APRN [address] [facility] [address] [place] [id number] Health Maintenance Due Date Last Done Comments [facility]-DTaP,Tdap,and Td Vaccines (2 - Td or Tdap) 02/24/2023 02/24/2013 [id number] Vaccine (4 - season) 2024 10/22/2021, 04/11/2021, 07/05/2020 [facility]-Influenza Vaccine (#1) 01/01/202501/17, 03/04/2022, 02/16/2018, Additional history exists [facility]-Depression Screening 01/17/2025 01/18/2024 [facility]-Diabetes: Hemoglobin A1C 01/17/2025 01/18/2024, 12/29/2022, 12/23/2021, Additional history exists [facility]-Medicare Annual Wellness (AWV) 01/17/2025 01/18/2024, 12/29/2022, 12/23/2021, Additional history exists [facility]-Bone Density Scan 02/09/2025 02/09/2023, 022 [facility]- SDOH Screenings 04/13/2025 [facility]-Adult SDOH Screenings 04/13/2025 10/12/2024 [facility]-Infant/Child/Adol SDOH Screenings 04/13/2025 10/12/2024 [facility]-Hepatitis A Vaccines Aged Out 019, 08/17/2018, 03/19/2018, Additional history exists No longer eligible based on patient's age to complete this topic [facility]-Zoster Vaccines Completed 09/08/2023, 02/17/2023, 09/20/2009 [facility]-Pneumococcal Vaccine: 50+ Years Completed 01/18/2024, 04/11/2021, [...] (transient ischemic attack) Coronary artery disease involving red cliff coronary artery of red cliff heart, unspecified whether angina present Aneurysm of ascending aorta without rupture ([facility]) Medicare annual wellness visit, subsequent DEXA BONE DENSITY Routine 02/09/2023 9:3 5 AM EDT Osteopenia, unspecified location from Last 3 Months or Most Recently Relevant to Health Maintenance Results * (ABNORMAL) Basic metabolic panel (10/12/2024 2:31 PM EDT) Glucose, Plasma 120(H) 74 - 99 mg/dL 10/12/2024 3:57 PM EDT [facility] BUN, Plasma 15 8 - 23 mg/dL 10/12/2024 3:57 PM EDT [facility] Creatinine, Plasma 0.92 0.60 - 1.10 mg/dL 10/12/2024 3:57 PM EDT [facility] BUN/Creatinine Ratio 16 10/12/2024 3:57 PM EDT [facility] Sodium, Plasma 140 136 - 145 mmol/L 10/12/2024 3:57 PM EDT [facility] Potassium, Plasma 4.0 3.6 - 4.9 mmol/L 10/12/2024 3:57 PM EDT [facility] Chloride, Plasma 102 97 - 107 mmol/L 10/12/2024 3:57 PM EDT [facility] CO2, Plasma 28 22 - 29 mmol/L 10/12/2024 3:57 PM EDT [facility] Anion Gap 10 6 - 16 mmol/L 10/12/2024 3:57 PM EDT [facility] Total Calcium, Plasma 9.5 8.9 - 10.2 mg/dL 10/12/2024 3:57 PM EDT [facility] eGFRcr 62.7 mL/min/1.7 3m*2 10/12/2024 3:57 PM EDT [facility] Comment:Reported eGFRcr in m L/min/1.73m2 is based the CKD-EPI 2020 equation that does not use a race coefficient. Blood Venous blood specimen / Unknown Venipuncture / Unknown 10/12/2024 2:31 PM EDT 10/12/2024 2:31 PM EDT us Eduarda Egan TANKAGE GRINDER OPERATOR LAB BLOOD ORDERABLES Final Result [facility] [address] [place] [address] * (ABNORMAL) Hemoglobin A1c (01/18/2024 10:22 AM EDT) Hemoglobin A1c 5.9(H) <5.7 % 01/18/2024 12:13 PM EDT [facility] Blood Venous blood specimen / Unknown Venipuncture / Unknown 01/18/2024 10:22 AM EDT 01/18/2024 10:23 AM EDT Narrative [facility] - 01/18/2024 12:13 PM EDT HA1C Interpretive Data: Diagnosis of Diabetes: Diabetic > or = 6.5% Pre-diabetic 5.7 to 6.4% Non-diabetic < or = 5.6% Glycemic Targets for Type I and Type II Diabetics: Non- Adults <7.0% Adults <6.0% Children and Adolescents <7.5% Source: [place] [employer]. Standards of medical care in diabetes,2017. Diabetes Care.2017:40 (suppl 1):S1-S135. HbA1c assay performed by an ion-exchange chromatography method that is certified traceable to the DCCT. us Viola Sprague TANKAGE GRINDER OPERATOR LAB BLOOD ORDERABLES Final Result [facility] [address] [place] [address] * Dexa Bone Density (02/09/2023 9:35 AM EDT) Anatomical Region Laterality Modality L-spine Radiographic Kus[place] ging Narrative 02/10/2023 11:34 AM EDT [facility] - Nephrology, Bone & Mineral Metabolism [address], [place] [address] DXA Bone Densitometry Report: [DAY/DATE] BMD test performed using the Blackstrap DXA System (analysis version: 14.10) manufactured by [employer]. CLINICAL INFORMATION: PATIENT NAME: Kathy May PATIENT [...] BMD in 2-3 years us Viola Sprague TANKAGE GRINDER OPERATOR IMG DXA PROCEDURES Final R esult from Last 3 Months or Most Recently Relevant to Health Maintenance Insurance [facility] MEDICARE Care Teams Medical Staff Physician Relationship Specialty Start Date End Date Viola Sprague, CYRUS [address] [place] [id number] PCP - General 09/13/20
--- OUTSIDE RECORDS SUMMARY | 2024-11-17 11:52 | XMS_ITS | Data Portability ---
Author Organization [facility] Address [address] [place] [address] Assessment No assessment recorded. Plan of Treatment Reminders Order Date Submit Date Provider Last Modified By Organization Details Last Modified Time Details Appointments None recorded. Lab None recorded. Referral dermatologi st referral - appointment scheduled 2022 023 bstears Amaris Gonzalez [employer], [address] [place], [address], 15:15:35 Procedures None recorded. Surgeries None recorded. Imaging None recorded. Medication Orders None recorded. Patient TargetsNo targets recorded. Patient Instructions Encounter Date Encounter Id Patient Instructions Last Modified By Organization Details Last Modified Time 10/09/2022 [id number] body mass index: care instructions [email or web address] Not available 10/09/2022 10:53:50 learning about healthy weight [email or web address] Not available 10/09/2022 10:53:50 10/19/2022 [id number] future procedure : 3 mm punch on tip of nose, 5 nylon [email or web address] Not available 10/19/2022 13:59:26 Reason for Referral Manager Home Referral for L esion of skin of nose appointment scheduled Referring Physician: Braden Tejeda, Family Medicine, Encounter Date: 10/09/2022 Problems Name Problem SNOMED Code Status Onset Date Resolution Date Notes Provider Name and Address Organization Details Recorded Time Hypertensive disorder 46737207 Active Yolanda Cisneros null, [facility] 3 09:57:04 Hyperlipidemia 74167913 Active Any Cisneros null, [facility] 09:57:29 Problem Notes None recorded. Procedures [...] Available Not Available Nasonex 50 mcg/actua tion [place] inhale 1- 2 sprays in each nostril by intranas al route once daily 08/28 completed Nasonex Nasal [place], Non-Aero josé miguel 50 mcg/Actu ation;Re corded [...] once daily 10/09 completed Fluticas one Nasal [place], Suspensi on 50 mcg/Actu ation;Re corded Status: [...] blood by Pulse oximetry Respiratory rate Systolic And Diastolic Provider Name and Address Organization Details Last Updated DateTime 3 170.18 cm 29.8 kg/m2 03350.6 5 g 97.3 [degF] 96 /min 97 % 97 % 18 /min 152/80 mm[Hg] Yolanda Cisneros [place] - [facility] 3 09:53:36 Date Recorded Body height Body mass index (BMI) Body weight Heart rate Oxygen saturation Oxygen saturation in Arterial blood by Pulse oximetry Respiratory rate Systolic And Diastolic Provider Name and Address Organization Details Last Updated DateTime 3 170.18 cm 30.1 kg/m2 69410.7 4 g 73 /min 97 % 97 % 18 /min 118/74 mm[Hg] America Taylor [place] - [facility] 3 13:22:24 Social History Question Answer Notes LastModified by Organizat ion Details LastModified Time Tobacco Smoking Status Former Smoker Yolanda Amelia null, [place] - [facility] 10/09/2022 10:00:27 Do [...] Or The Highest Degree You Have Received? [id number] Information not available 10/09/2022 What Is The Fluoride Status Of Your Home? Fluoridated Information not available 10/09/2022 When Did You Quit Smoking? 16+yearssindivya mendoza Information not available 10/09/2022 Have You Recently Or Are You Planning To Travel To An Area With Zika Virus? No Information not available 10/09/2022 Do You Have A Medical Power Of Manager Machine? Yes Information not available 10/09/2022 What Was [...] anxious, or unable to sleep at night)? [id number] Information not available 10/09/2022 Do you have [...] B, adult 8 completed Yolanda Cisneros null, - [facility] 10/09/2022 09:54:02 Hep A, adult 8 completed Yolanda Braswelller null, - [facility] 10/09/2022 09:54:02 Influenza, split virus, quadrivalent, preservative 8 completed Yolanda Cisneros null, - [facility] 10/09/2022 09:54:01 Influenza, high-dose, quadrivalent, PF 2 completed Yolanda Braswelller null, - [facility]09[facility]2022 09:54:02 COVID-19, mRNA, LNP-S, PF, 100 mcg/0.5mL dose or 50 mcg/0.25mL dose 1 completed Yolanda Cisneros null, - [facility]09/2022 09:54:02 COVID-19, mRNA, LNP-S, PF, 100 mcg/0.5mL dose or 50 mcg/0.25mL dose 2 completed Yolanda Cisneros null, [facility]09/2022 09:54:02 COVID-19, mRNA, LNP-S, PF, 100 mcg/0.5mL dose or 50 mcg/0.25mL dose 1 completed Yolanda Cisneros null, [facility] 10/09/2022 09:54:02 pneumococcal polysaccharide PPV23 3 completed Yolanda Cisneros null, [facility]/2022 09:54:02 influenza, unspecified formulation 3 completed Yolanda Cisneros null, - [facility] 10/09/2022 09:54:02 Tdap 3 completed Yolanda Cisneros null, - [facility] 10/09/2022 09:54:02 Pneumococcal conjugate PCV 13 1 completed Yolanda Cisnerso null, - [facility] 10/09/2022 09:54:02 zoster live 0 completed Yolanda Cisneros null, - [facility] 10/09/2022 09:54:02 Influenza, high-dose, trivalent, PF 8 completed Yolanda Cisneros null, [place] - [facility] 10/09/2022 09:54:02 Hep A, adult 9 completed Yolanda Cisneros null, [place] - [facility] 10/09/2022 09:54:02 Hep A-Hep B 9 completed Yolanda Cisneros null, [place] - [facility] 10/09/2022 09:54:02 Hep A-Hep B 8 completed Yolanda Cisneros null, [place] - [facility] 10/09/2022 09:54:02 Hep A-Hep B 8 completed Yolanda Cisneros null, [place] - [facility] 10/09/2022 09:54:02 Past Encounters Encounter ID Performer Location Encounter Start Date Encounter Closed Date Diagnosis/Indication Diagnosis SNOMED-CT Code Diagnosis ICD10 Code Diagnosis Note [id number] [facility] [address] [place] [address] 12/29/2005 00:00:00 [id number] [facility] [address] [place] [address] 12/27/2007 00:00:00 [id number] [facility] [address] [place] [address] 04/17/2009 00:00:00 [id number] [facility] [address] [place] [address] 01/12/2008 00:00:00 [id number] [facility] [address] [place] [address] 05/26/2010 00:00:00 [id number] [facility] [address] [place] [address] 08/28/2008 00:00:00 [id number] [facility] [address] [place] [address] 04/17/2009 00:00:00 [id number] Braden Tejeda APRN [address] [address] 10/09/2022 09:31:59 10/09/2022 10:44:10 Body mass index 25-29 - overweight 541891110 Z68.29 Overweight 721610078 E66 .3 Lesion of skin of nose 1609860677 3348384 J34.89 [id number] Amaris Gonzalez APRN [facility] [address] [place] [address] 10/19/2022 12:41:31 10/19/2022 14:05:05 Neoplasm of skin 754143682 D49.2 return for 3 mm punch on [...] Name 10/16/2022 1 [employer] (PPO) Kathy May [id number] Kathy May 11/09/2022 [employer] (MEDICARE REPLACEMENT/A DVANTAGE - PPO) Kathy May [id number] Kathy May Notes Date Note Type Note Provider Name and Address Organization Details Recorded Time 10/09/2022 text/html 77 yr old female presents for a skin lesion to her nose. She had a place on her nose removed in July of 2022 in [place] and now another one is back and becoming bigger Braden Tejeda APRN [address], [place], [address], [place] - [facility] 10/09/2022 10:54:26 10/19/2022 text/html Kathy is a 77 year old who presents to dermatology today with concerns of askin lesion on nose . Present since the Fall and has not cleared up. It has previously been frozen by a Derm in [place]. Amaris Gonzalez APRN [address], [place], [address], [place] - [facility] 10/19/2022 14:02:35 OBGyn Episode No OBEpisode recorded.
--- OUTSIDE RECORDS SUMMARY | 2024-11-17 11:52 | XMS_ITS | Encounter Summary ---
Author Organization Healthcare Address [address] [place] [address] Care Team Providers Care Biomechanical Engineer Name Role Phone Viola Sprague APRN Primary Care Provider +1- [phone] Encounter Details Date Type Department Care Team (Late st Contact Info) Description 10/13/2024 Results Follow-Up [facility] [address], [address] [place] [address] Eduarda Egan APRN [address] [place] [address] Social History Tobacco Use Types [...] any time in the past 12 m [facility], were you homeless or living in [...] Description 01/03/2025 1:00 PM EDT Office Visit [facility] [place] [address], [address] [place] [address] Juan Manuel Rivers MD [address] [place], [place] [id number] 01/22/2025 10:00 AM EDT Clinical Support [facility] [address] [place] [address] 02/05/2025 10:30 AM EDT Office Visit [facility] [address] [place] [address] Viola Sprague APRN [address] [facility] [address] [place] [address] documented as of this encounter Visit Diagnoses Not on filedocumented in this encounter Additional Health Concerns Assessment Noted Time A fall risk assessment has been complete d for the patient 10/12/2024 1:44 PM EDT A Body Mass Index follow-up plan has been documented for the patient 10/12/2024 2:26 PM EDT documented as of this encounter Care Teams Biomechanical Engineer Relationship Specialty Start Date End Date Viola Sprague APRN [address] [facility] [address] [place] [address] PCP - General 09/13/20 documented as of this encounter
--- OUTSIDE RECORDS SUMMARY | 2024-11-17 11:52 | XMS_ITS | Encounter Summary ---
Author Organization Healthcare Address [address] [place] [address] Care Team Providers Care Civil Clerk Name Role Phone Viola Sprague APRN Primary Care Provider +1- [phone] Reason for Visit * Reason Onset Date Comments Med Refill 11/17/2024 Encounter Details Date Type Department Care Team (Late st Contact Info) Description 11/17/2024 Refill [facility] [address] [place] [address] Viola Sprague APRN [address] [place] [address] Irregular heartbeat Social History Tobacco Use Types Packs/Day Years [...] any time in the past 12 m [facility], were you homeless or living in a long term (including now)? No 10/12/2024 Safety and Environment [...] Description 01/03/2025 1:00 PM EDT Office Visit [facility] [place] [address], [address] [place] [address] Juan Manuel Rivers MD [address] [place], [place] [id number] 01/22/2025 10:00 AM EDT Clinical Support [facility] [address] [place] [address] 02/05/2025 10:30 AM EDT Office Visit [facility] [address] [place] [address] Viola Sprague APRN [address] [facility] [address] [place] [address] documented as of this encounter Visit Diagnoses Diagnosis Irregular heartbeat Unspecified cardiac dysrhythmia documented in this encounter Additional Health Concerns Assessment Noted Time A fall risk assessment has been complete d for the patient 10/12/2024 1:44 PM EDT A Body Mass Index follow-up plan has been documented for the patient 10/12/2024 2:26 PM EDT documented as of this encounter Care Teams Civil Clerk Relationship Specialty Start Date End Date Viola Sprague APRN [address] [facility] [address] [place] [address] PCP - General 09/13/20 documented as of this encounter
--- OUTSIDE RECORDS SUMMARY | 2024-11-17 11:52 | XMS_ITS | Encounter Summary ---
Author Organization Healthcare Address [address] [place] [address] Care Team Providers Care Press Washer Name Role Phone CelestineViola Mercy BRIDGES Primary Care Provider +1- [phone] Encounter Details Date Type Department Care Team [...] any time in the past 12 m [facility], were you homeless or living in a halfway (including now)? No 10/12/2024 Safety and Environment [...] Upcoming Encounters Date Type Department Care Team ([facility] st Contact Info) Description 01/03/2025 1:00 PM EDT Office Visit [facility] [place] [address], [address] [place] [address] Juan Manuel Rivers MD [address] [place] [address] 01/22/2025 10:00 AM EDT Clinical Support [facility] [address] [place] [address] 02/05/2025 10:30 AM EDT Office Visit [facility] [address] [place] [address] Viola Sprague APRN [address] [place] [address] documented as of this encounter Visit Diagnoses Not on filedocumented in this encounter Additional Health Concerns Assessment Noted Time A fall risk assessment has been complete d for the patient 10/12/2024 1:44 PM EDT A Body Mass Index follow-up plan has been documented for the patient 10/12/2024 2:26 PM EDT documented as of this encounter Care Teams Press Washer Relationship Specialty Start Date End Date Viola Sprague APRN [address] [place] [address] PCP - General 09/13/20 documented as of this encounter
--- NOTE | 2024-11-17 12:26 | ECG_ITS ---
APPROVED REPORT Exam: Resting ECG HR:63 bpm ECG Measurements Heart Rate 63 AXES PA 133 P 50 QRSd 94 QRS 51 QT 382 T 66 QTc 390 Conclusion SINUS RHYTHM WITH SINUS ARRHYTHMIA NONSPECIFIC ST & T-WAVE ABNORMALITY BORDERLINE ECG INTERPRETATION BASED ON A DEFAULT AGE OF 38 YEARS UNCONFIRMED REPORT Electronically signed by : Dean Garcia MD 11/24/2024 07:58:20
--- NOTE | 2024-11-17 12:30 | XR_ITS ---
FINAL REPORT CLINICAL HISTORY: Surgery preop, high blood pressure COMPARISON: None FINDINGS: CHEST 2 VIEWS No acute pulmonary density is evident. There is no evidence of effusion or other pleural disease. The mediastinum has a normal appearance. The cardiac silhouette is unremarkable. IMPRESSION: Unremarkable chest exam. Reviewed, Interpreted and Dictated by Charley Lopez MD Transcribed by Natalia Sage Authenticated and [facility]
[2024-11-17 12:49] LABS: Hematocrit 39.7 % (37.0-47.0); Hemoglobin 13.0 g/dL (12.2-16.2); Immature Granulocytes % 0 %; Mean Corpuscular HGB Conc 32.7 g/dL (31.8-35.4); Mean Corpuscular Hemoglobin 28.0 pg (27.0-31.2); Mean Corpuscular Volume 85.4 fl (81-99); Nucleated Red Blood Cells % 0 %; Platelet Count 173 K/mm3 (142-424); Red Blood Count 4.65 M/mm3 (4.20-5.40); Red Cell Distribution Width-SD 39.1 fL; White Blood Count 4.8 K/mm3 (4.8-10.8)
[2024-11-17 12:59] LABS: Chloride 102 mmol/L (98-107); Sodium 138 mmol/L (136-145)
[2024-11-17 13:00] LABS: Potassium 3.9 mmoL/L (3.5-5.1)
[2024-11-17 13:02] LABS: Blood Urea Nitrogen 12 mg/dl (7-17)
[2024-11-17 13:03] LABS: Anion Gap 9.9 mEq/L (5-15); Calcium 9.3 mg/dl (8.4-10.2); Carbon Dioxide 30 mmol/L (22.0-30.0); Creatinine,Serum 0.70 mg/dl (0.52-1.04); Estimated Glomerular Filt Rate 80 ml/min (>60); GFR (African American) 97 ML/MIN (>60); Glucose 95 mg/dl (74-100)
== END 2024-11-17 23:59 | disposition home or self-care (01) ==
LOC: PREOP 11:50
PROVIDERS: Visit Provider Orthopaedic Surgery
DX: Z01.810 Encounter for preprocedural cardiovascular examination (principal); Z01.811 Encounter for preprocedural respiratory examination; Z01.812 Encounter for preprocedural laboratory examination; I49.8 Other specified cardiac arrhythmias; R94.31 Abnormal electrocardiogram [ECG] [EKG]; M16.11 Unilateral primary osteoarthritis, right hip; I10 Essential (primary) hypertension
CPT/HCPCS: 71046; 80048; 85025; 93005

== ENCOUNTER 2024-11-21 09:49 | Day surgery (SDC) | payer MEDICARE, SELFPAY ==
[2024-11-17 13:26] VITALS: BMI 29.8
--- NOTE | 2024-11-21 10:28 | EXP.ANES.CKL ---
[facility] Disclaimer: The information contained in this section may have been updated after the patient was seen, as this information can be updated by other users. Medical History (Updated 11/17/24 @ 12:10 by Bismark Moses RN) Arrhythmia HLD (hyperlipidemia) HTN (hypertension) Surgical History (Updated 11/17/24 @ 12:11 by Bismark Moses RN) History of knee replacement Family History (Updated 11/17/24 @ 12:12 by Bismark Moses RN) Other Family history of CVA Family history of cancer Social History (Updated 11/17/24 @ 12:13 by Bismark Moses RN) Smoking Status: Never smoker alcohol intake: never substance use type: denies use current occupational status: retired Travel in the last 8 weeks?: None [facility] Anesthesia Checklist Patient Identification Patient Identification: Verbal (Name & ) Structural Data Admitted From: Home Planned Operative Procedure/s: r hip injection Consent for Planned Operative Procedure(s) Verified: Yes NPO Status Verified Time NPO: 00:00 Airway Assessment Mallampati Score:: Class II C-Spine Mobility Assessed: Yes TMJ Mobility Assessed: Yes Dentition: Partials Neurological Assessment Level of Consciousness: Awake, Alert and Appropriate Anesthesia Plan Anesthesia Risk discussed: Yes Anesthesia Plan: Verified ASA Class: II Anesthesia Type: MAC
[2024-11-21 10:36] VITALS: BP 126/71; PULSE 64; RESP 17; TEMP 36.4; O2SAT 93
[2024-11-21] MEDS: LACTATED RINGERS 1000ML 1,000 ML 100 ML IV (10:41)
[2024-11-21] MEDS: LIDOCAINE 1% 20ML MDV 20 ML (10:53)
[2024-11-21] MEDS: TRIAMCINOLONE ACET 40MG/ML VIAL 40 MG (10:53)
--- NOTE | 2024-11-21 10:59 | EXP.OP.NOTE ---
Date of procedure: 11/21/24 Pre-op Diagnosis:: Right hip osteoarthritis Post-op Diagnosis:: Same Procedure performed:: Right hip injection with arthrogram, x-ray guidance for needle placement Surgeon:: Gilberto Ortiz DO Anesthesia: MAC Estimated blood loss (mL): 0 Operative findings:: See dictation Operative note:: Patient identified preoperatively. Right hip marked with yes my initials. Transported to operative suite placed upon the radiolucent bed. Patient given sedation and then right hip was prepped and draped in normal sterile fashion. Once prepped and draped final operative timeout performed to identify proper patient procedure and extremity. Everyone involved in the case agreed. There is no counter indications beginning. X-ray was used to identify the hip joint 18-gauge spinal needle was used with proper trajectory into the hip capsule. This was then confirmed via x-ray and arthrogram was confirmed for placement within the capsule initial placement with contrast was confirmed on arthrogram to be in the inside of the hip capsule. At that time 80 mg of Kenalog 3 cc of 1% lidocaine injected the hip patient tolerated procedure well without complication taken to stepdown in stable condition Condition: stable Disposition: PACU Complications:: None apparent
[2024-11-21 11:00] VITALS: BP 93/54; PULSE 61; RESP 18; O2SAT 98
--- NOTE | 2024-11-21 11:01 | IR_ITS ---
FINAL REPORT CLINICAL HISTORY: RIGHT HIP INJECTION FLUORO TIME 0:06 mGy 2.11 FINDINGS: FLUOROSCOPY LESS THAN 1 HOUR HISTORY: Fluoroscopy guidance. FINDINGS: Fluoroscopic guidance was provided for right hip injection. A single spot film was obtained. A total of 0:06 minutes of fluoroscopy time were used. DAP: 2.11 mGy IMPRESSION: As above. Reviewed, Interpreted and Dictated by Charley Lopez MD Transcribed by Sandra Waller Authenticated and . [facility]
[2024-11-21 11:10] VITALS: BP 102/60; PULSE 70; RESP 18; O2SAT 98
[2024-11-21 11:20] VITALS: BP 122/71; PULSE 62; RESP 16; O2SAT 96
[2024-11-21 11:30] VITALS: BP 125/75; PULSE 60; RESP 16; TEMP 36.2; O2SAT 96
== END 2024-11-21 11:30 | disposition home or self-care (01) ==
PROVIDERS: Visit Provider Orthopaedic Surgery
PROC: 3E0U3GC Introduction of Other Therapeutic Substance into Joints, Percutaneous Approach (ICD-10-PCS; CPT 20610; principal; 2024-11-21 11:45)
DX: M16.11 Unilateral primary osteoarthritis, right hip (principal); I10 Essential (primary) hypertension; E78.5 Hyperlipidemia, unspecified; Z79.82 Long term (current) use of aspirin; Z79.899 Other long term (current) drug therapy
CPT/HCPCS: 27095; 73525; J2003; J2704; J3010; J3301; J7120